=== PATIENT | female | born 1995 ===

== ENCOUNTER 2016-10-27 15:27 | Emergency (ER) | payer OTHER ==
[2016-10-27 15:38] VITALS: BMI 29.0
[2016-10-27 15:40] VITALS: BP 121/73; PULSE 76; RESP 16; TEMP 98.7; O2SAT 99
--- NOTE | 2016-10-27 15:47 | ED PDOC ---
Arrival/HPI - General Chief Complaint: Dental Pain Time Seen by Provider: 10/27/16 15:41 Historian: Patient - History of Present Illness Narrative History of Present Illness (Text): 10/27/16 15:42 21 y/o female, no pmh, nkda, c/o painful lesion on the roof of the mouth region after the dental procedure. Aching pain, painful chew eat, no dizziness, no headache, no night sweat, no palpitation, no numbness or tingling, no rash, no other medical or psychological complaints. Past Medical History - Provider Review Nursing Documentation Reviewed: Yes - Past Medical History Past Medical History: No Previous - Psychiatric Hx Depression: No Hx Emotional Abuse: No Hx Physical Abuse: No Hx Substance Use: No - Past Surgical History Past Surgical History: No Previous - Suicidal Assessment Feels Threatened In Home Enviroment: No Family/Social History - Physician Review Nursing Documentation Reviewed: Yes Family/Social History: Unknown Family HX Smoking Status: Never Smoked Hx Alcohol Use: No Hx Substance Use: No Hx Substance Use Treatment: No Allergies/Home Meds Allergies/Adverse Reactions: Allergies No Known Allergies Allergy (Verified 10/27/16 15:38) Review of Systems - Review of Systems Constitutional: absent: Fatigue, Fevers Eyes: absent: Vision Changes ENT: Other (oral lesion). absent: Hearing Changes Respiratory: absent: SOB, Cough Cardiovascular: absent: Chest Pain Gastrointestinal: absent: Abdominal Pain, Diarrhea, Nausea, Vomiting Skin: absent: Rash, Pruritis, Skin Lesions, Laceration, Abscess, Ulcer, Cellulitis Neurological: absent: Headache, Dizziness, Gait Changes, Speech Changes Physical Exam Vital Signs Reviewed: Yes Vital Signs Temp Pulse Resp BP Pulse Ox 10/27/16 15:38 98.7 F 76 16 121/73 99 Temperature: Afebrile Blood Pressure: Normal Pulse: Regular Respiratory Rate: Normal Appearance: Positive for: Well-Appearing, Non-Toxic, Comfortable Pain Distress: Moderate Mental Status: Positive for: Alert and Oriented X 3 - Systems Exam Head: Present: Atraumatic, Normocephalic Pupils: Present: PERRL Extroacular Muscles: Present: EOMI Conjunctiva: Present: Normal Ears: Present: NORMAL TM, Normal Canal. No: Erythema Mouth: Present: Moist Mucous Membranes Nose (External): No: Abrasion, Contusion, Laceration Nose (Internal): Present: Normal Inspection, No Active Bleeding Neck: Present: Normal Range of Motion, Trachea Midline (visible approx. 1cmx0.5cm noted with canker sore, no cellulitis or streaking, no ulcers. ). No : MIDLINE TENDERNESS, Paraspinal Tenderness, Lymphadenopathy Respiratory/Chest: Present: Clear to Auscultation, Good Air Exchange. No: Respiratory Distress, Accessory Muscle Use Cardiovascular: Present: Regular Rate and Rhythm, Normal S1, S2. No: Murmurs Abdomen: Present: Normal Bowel Sounds. No: Tenderness, Distention, Peritoneal Signs Back: Present: Normal Inspection Upper Extremity: Present: Normal Inspection. No: Cyanosis, Edema Lower Extremity: Present: Normal Inspection. No: Edema Neurological: Present: GCS=15, CN II-XII Intact, Speech Normal Skin: Present: Warm, Dry, Normal Color. No: Rashes Psychiatric: Present: Alert, Oriented x 3, Normal Insight, Normal Concentration Medical Decision Making ED Course and Treatment: 10/27/16 15:51 -Discharge home with triamcinolone dental paste, viscous rinse and spit, avoid sour/spicy/acidic/fried food, follow up with your own pmd and dentist within 2 days, return to the ER for any new or worsening signs or symptoms. - PA / [employer] / Resident Statement MD/DO has reviewed & agrees with the documentation as recorded. Disposition/Present on Arrival - Present on Arrival Any Indicators Present on Arrival: No History of DVT/PE: No History of Uncontrolled Diabetes: No Urinary Catheter: No History of Decub. Ulcer: No History Surgical Site Infection Following: None - Disposition Have Diagnosis and Disposition been Completed?: Yes Diagnosis: Canker sore Disposition: HOME/ ROUTINE Disposition Time: 15:52 Patient Plan: Discharge Condition: GOOD Additional Instructions: Discharge home with triamcinolone dental paste, viscous rinse and spit, avoid sour/spicy/acidic/fried food, follow up with your own pmd and dentist within 2 days, return to the ER for any new or worsening signs or symptoms. Prescriptions: Lidocaine 2% Viscous 15 ml PO BID PRN #210 ml PRN Reason: Other Triamcinolone 0.1% [Kenalog 0.1% in [employer]] 1 appl MM DAILY #1 tube Referrals: Sandro Melgoza DMD [Non-Staff] - Follow up with primary Forms: WORK NOTE
== END 2016-10-27 16:40 | disposition home or self-care (01) ==
LOC: ED 15:27
DX: K12.0 Recurrent oral aphthae (principal)

== ENCOUNTER 2017-08-12 18:58 | Emergency (ER) | payer OTHER ==
[2017-08-12 18:58] VITALS: BMI 29.0
[2017-08-12 19:05] VITALS: RESP 16; TEMP 97.4
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
[2017-08-13 03:09] VITALS: BP 115/72; PULSE 70; O2SAT 98
--- NOTE | 2017-08-13 09:25 | RAD ---
PROCEDURE: Cervical Spine Radiographs. HISTORY: Pain. COMPARISON: None. FINDINGS: BONES: Alignment maintained. No fracture. Dens Intact. DISC SPACES: Normal. SOFT TISSUES: Normal. No prevertebral soft tissue swelling. OTHER FINDINGS: None. IMPRESSION: Normal cervical spine radiographs
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
== END 2017-08-12 21:20 | disposition home or self-care (01) ==
LOC: ED 18:58
DX: S13.4XXA Sprain of ligaments of cervical spine, initial encounter (principal); V43.52XA Car driver injured in collision with other type car in traffic accident, initial encounter
CPT/HCPCS: 72040; 72070; 96372; 99284; J1885

== ENCOUNTER 2018-08-25 06:50 | Emergency (ER) | payer OTHER ==
[2018-08-25 07:15] VITALS: BMI 25.0
[2018-08-25 07:21] VITALS: TEMP 99.9
[2018-08-25] MEDS ORDERED: Lidocaine 2% Viscous 100 ml PO STA (07:39)
--- NOTE | 2018-08-25 07:39 | ED PDOC ---
Arrival/HPI - General Chief Complaint: Flu-like Symptoms Time Seen by Provider: 08/25/18 07:15 Historian: Patient - History of Present Illness Narrative History of Present Illness (Text): 08/25/18 07:38 23 year old female, with no significant past medical history, presents to the ED for evaluation of flu-like symptoms since past 2 days. Patient describes subjective fever, generalized myalgias, productive cough with yellow sputum and sore throat since onset of symptoms. Patient denies any other associated somatic complaints. Patient denies any headache, dizziness, chest pain, shortness of breath, dyspnea on exertion, cough, diaphoresis, abdominal pain, nausea, vomiting, diarrhea, back pain, neck pain, or any other complaints. Patient reports sick contact with family member who was diagnosed with the flu recently. Time/Duration: < week Symptom Onset: Gradual Symptom Course: Unchanged Activities at Onset: Light Context: Home Past Medical History - Provider Review Nursing Documentation Reviewed: Yes - Past History Past History: No Previous - Infectious Disease Hx of Infectious Diseases: None - Tetanus Immunization Tetanus Immunization: Unknown - Past Medical History Past Medical History: No Previous - Psychiatric Hx Psychophysiologic Disorder: No Hx Substance Use: No - Past Surgical History Past Surgical History: No Previous - Anesthesia Hx Anesthesia: No Hx Anesthesia Reactions: No Hx Malignant Hyperthermia: No - Suicidal Assessment Feels Threatened In Home Enviroment: No Family/Social History - Physician Review Nursing Documentation Reviewed: Yes Family/Social History: Unknown Family HX Smoking Status: Never Smoked Hx Alcohol Use: No Hx Substance Use: No Hx Substance Use Treatment: No Allergies/Home Meds Allergies/Adverse Reactions: Allergies No Known Allergies Allergy (Verified 08/12/17 19:00) Review of Systems - Physician Review All systems were reviewed & negative as marked: Yes - Review of Systems Constitutional: Fevers ENT: Sore Throat Respiratory: absent: SOB, Cough Cardiovascular: absent: Chest Pain, Palpitations Gastrointestinal: absent: Abdominal Pain, Diarrhea, Nausea, Vomiting Genitourinary Female: absent: Dysuria, Urine Output Changes Musculoskeletal: Myalgias. absent: Back Pain, Neck Pain Skin: absent: Rash Neurological: absent: Headache, Dizziness, Focal Weakness Endocrine: absent: Diaphoresis Psychiatric: absent: Anxiety Physical Exam - Physical Exam Narrative Physical Exam (Text): 08/25/18 07:39 Gen: VS reviewed, alert, well developed, well nourished, nontoxic, mild distress. ENT: normal pharynx. Eye: EOMI, PERRL. Neck: no JVD, supple, no adenopathy. CV: regular rate, regular rhythm, no rubs, no murmur, no gallops, S1, S2, pulses equal and strong. Pulm: no distress, clear to auscultation, no wheeze, no rhonchi, breath sounds equal, no rales. Abd: soft, nontender, no guarding, no rebound, no rigidity, normal bowel sounds. Ext: no edema. Skin: good color, no rash, no cyanosis. Psych: responds appropriately to questions, normal affect. Neuro: oriented x 3, CN2-12 intact grossly, motor intact, sensation intact. Vital Signs Reviewed: Yes Vital Signs Temp Pulse Resp BP Pulse Ox 08/25/18 07:20 99.9 F H 105 H 18 116/70 100 Temperature: Afebrile Blood Pressure: Normal Pulse: Tachycardic Respiratory Rate: Normal Appearance: Positive for: Well-Appearing, Non-Toxic, Comfortable Pain Distress: Mild Mental Status: Positive for: Alert and Oriented X 3 Medical Decision Making ED Course and Treatment: 08/25/18 07:34 Impression: 23 year old female presents to the ED for evaluation of flu-like symptoms. Plan: -- Tylenol -- Lidocaine 2% -- Influenza AB -- Rapid Strep -- Reassess and disposition Prior Visits: Notes and results from previous visits were reviewed. Progress Notes: 08/25/18 08:45 young healthy patient, nontoxic, postiive flu test, treatment not indicated with tamiflu, supportive care. - Scribe Statement The provider has reviewed the documentation as recorded by the Nicolasaibsharla Back. All medical record entries made by the Scribe were at my direction and personally dictated by me. I have reviewed the chart and agree that the record accurately reflects my personal performance of the history, physical exam, medical decision making, and the department course for this patient. I have also personally directed, reviewed, and agree with the discharge instructions and disposition. Disposition/Present on Arrival - Present on Arrival Any Indicators Present on Arrival: No History of DVT/PE: No History of Uncontrolled Diabetes: No Urinary Catheter: No History of Decub. Ulcer: No History Surgical Site Infection Following: None - Disposition Have Diagnosis and Disposition been Completed?: Yes Diagnosis: Influenza A Disposition: HOME/ ROUTINE Disposition Time: 08:46 Patient Plan: Discharge Condition: STABLE Discharge Instructions (ExitCare): Flu Additional Instructions: stay well hydrated (water). return for any new or worsening symptoms. Prescriptions: Lidocaine 2% Viscous 15 ml MM Q3H #1 bottle Referrals: Tha Peralta [facility] [Primary Care Provider] - Follow up with primary Forms: [facility] (Icelandic), WORK NOTE
[2018-08-25 08:46] LABS: INFLUENZA A B POS FOR INFLUENZA A (NEGATIVE)
[2018-08-25 09:25] VITALS: PULSE 98; RESP 20; O2SAT 99
[2018-08-25 10:17] VITALS: BP 110/58
== END 2018-08-25 10:18 | disposition home or self-care (01) ==
LOC: ED 06:50
DX: J10.1 Influenza due to other identified influenza virus with other respiratory manifestations (principal)

== ENCOUNTER 2018-10-17 11:38 | Emergency (ER) | payer SELFPAY ==
[2018-10-17 11:39] VITALS: BMI 25.0
[2018-10-17 12:23] VITALS: BP 121/78
[2018-10-17 13:12] VITALS: PULSE 79; RESP 19; TEMP 98; O2SAT 99
--- NOTE | 2018-10-17 15:20 | ED PDOC ---
Arrival/HPI - General Chief Complaint: Abdominal Pain Time Seen by Provider: 10/17/18 11:43 Historian: Patient - History of Present Illness Narrative History of Present Illness (Text): 10/17/18 15:20 A 23 year old female, whose past medical history includes , presents to the emergency department stating she her last menstrual period was 08/23/2018 and is concerned. Patient reports she has taken multiple tests, all resulting to be negative. Mentions her menstrual cycle is normally regular. Admits to being sexually active and uses no protection. Patient has been before, and currently has a 4-year-old child. Patient denies any vaginal discharge/bleeding, dysuria, nausea, vomiting, or any other complaints at this time. Past Medical History - Provider Review Nursing Documentation Reviewed: Yes - Past History Past History: No Previous - Infectious Disease Hx of Infectious Diseases: None - Tetanus Immunization Tetanus Immunization: Unknown - Past Medical History Past Medical History: No Previous - Psychiatric Hx Psychophysiologic Disorder: No Hx Substance Use: No - Past Surgical History Past Surgical History: No Previous - Anesthesia Hx Anesthesia: No Hx Anesthesia Reactions: No Hx Malignant Hyperthermia: No - Suicidal Assessment Feels Threatened In Home Enviroment: No Family/Social History - Physician Review Nursing Documentation Reviewed: Yes Family/Social History: No Known Family HX Smoking Status: Never Smoked Hx Alcohol Use: No Hx Substance Use: No Hx Substance Use Treatment: No Allergies/Home Meds Allergies/Adverse Reactions: Allergies No Known Allergies Allergy (Verified 10/17/18 12:21) Review of Systems - Physician Review All systems were reviewed & negative as marked: Yes - Review of Systems Gastrointestinal: absent: Nausea, Vomiting Genitourinary Female: absent: Dysuria, Vaginal Bleeding, Vaginal Discharge Physical Exam Vital Signs Reviewed: Yes Vital Signs Temp Pulse Resp BP Pulse Ox 10/17/18 13:11 98.0 F 79 19 99 10/17/18 12:21 97.7 F 73 18 121/78 100 Temperature: Afebrile Blood Pressure: Normal Pulse: Regular Respiratory Rate: Normal Appearance: Positive for: Well-Appearing, Non-Toxic, Comfortable Pain Distress: None Mental Status: Positive for: Alert and Oriented X 3 - Systems Exam Head: Present: Atraumatic, Normocephalic Pupils: Present: PERRL Extroacular Muscles: Present: EOMI Conjunctiva: Present: Normal Mouth: Present: Moist Mucous Membranes Neck: Present: Normal Range of Motion Respiratory/Chest: Present: Clear to Auscultation, Good Air Exchange. No: Respiratory Distress, Accessory Muscle Use Cardiovascular: Present: Regular Rate and Rhythm, Normal S1, S2. No: Murmurs Abdomen: No: Tenderness, Distention, Peritoneal Signs Back: Present: Normal Inspection Upper Extremity: Present: Normal Inspection. No: Cyanosis, Edema Lower Extremity: Present: Normal Inspection. No: Edema Neurological: Present: GCS=15, CN II-XII Intact, Speech Normal Skin: Present: Warm, Dry, Normal Color. No: Rashes Psychiatric: Present: Alert, Oriented x 3, Normal Insight, Normal Concentration Medical Decision Making ED Course and Treatment: 10/17/18 15:21 Impression: 23 year old female complaining of not having her menstrual period for the past 2 months since 08/23/2018. No acute findings on physical exam. Plan: -- POC Urine Test -- Reassess and disposition Progress Notes: Patient's test is negative. Patient instructed to follow-up with [facility] for further evaluation. - Scribe Statement The provider has reviewed the documentation as recorded by the Letitia Mckeon Provider Scribe Attestation: All medical record entries made by the Letitia were at my direction and personally dictated by me. I have reviewed the chart and agree that the record accurately reflects my personal performance of the history, physical exam, medic al decision making, and the department course for this patient. I have also personally directed, reviewed, and agree with the discharge instructions and disposition. Disposition/Present on Arrival - Present on Arrival Any Indicators Present on Arrival: No History of DVT/PE: No History of Uncontrolled Diabetes: No Urinary Catheter: No History of Decub. Ulcer: No History Surgical Site Infection Following: None - Disposition Have Diagnosis and Disposition been Completed?: Yes Diagnosis: Amenorrhea Disposition: HOME/ ROUTINE Disposition Time: 12:00 Condition: GOOD Discharge Instructions (ExitCare): Absent or Irregular Periods Additional Instructions: ROLAN HUMPHREYS, thank you for letting us take care of you today. The emergency medical care you received today was directed at your acute symptoms. If you were prescribed any medication, please fill it and take as directed. It may take several days for your symptoms to resolve. Return to the Emergency Department if your symptoms worsen, do not improve, or if you have any other problems. Please contact your doctor or call one of the physicians/clinics you have been referred to that are listed on the Patient Visit Information form that is in cluded in your discharge packet. Bring any paperwork you were given at discharge with you along with any medications you are taking to your follow up visit. Our treatment cannot replace ongoing medical care by a primary care provider outside of the emergency department. Thank you for allowing the [facility] team to be part of your care today. Follow up with the [facility] this week for further evaluation and management. Referrals: [facility] [Outside] - Follow up with primary [facility] [Outside] - Follow up with primary Forms: [employer] (Swedish)
== END 2018-10-17 13:12 | disposition home or self-care (01) ==
LOC: ED 11:38
DX: N91.2 Amenorrhea, unspecified (principal)